=== PATIENT | female | born 1950 | race Caucasian/White ===

== ENCOUNTER 2023-09-05 02:11 | Emergency (ER) | payer MEDICARE, BC ==
[~2023-09-05] VITALS: Ht 167.6 cm; Wt 59.4 kg
[2023-09-05] MEDS ORDERED: AMOX-430 PO (02:42)
[2023-09-05] MEDS ORDERED: AMOX/CLAVULANATE 875 MG TABLET ONE (02:43)
[2023-09-05] MEDS: AMOX/CLAVULANATE 875 MG TABLET PO ONE (02:46)
[2023-09-05 02:55] VITALS: BP 115/72; TEMP 98; O2SAT 100
== END 2023-09-05 02:55 | disposition home or self-care (01) ==
LOC: ER 02:15
DX: S61.230A Puncture wound without foreign body of right index finger without damage to nail, initial encounter (principal); I10 Essential (primary) hypertension; E78.5 Hyperlipidemia, unspecified; M06.9 Rheumatoid arthritis, unspecified; W55.01XA Bitten by cat, initial encounter; Y93.89 Activity, other specified; Y92.098 Other place in other non-institutional residence as the place of occurrence of the external cause; Y99.8 Other external cause status